=== PATIENT | female | born 1975 | race Caucasian/White ===

== ENCOUNTER 2021-09-07 18:06 | Emergency (ER) | payer MEDICAID ==
[~2021-09-07] VITALS: Ht 165.1 cm; Wt 75.0 kg
[2021-09-07] MEDS ORDERED: LIDOCAINE HCL 1% 20ML VIAL (Pyxis) INJ INFIL ONE (21:45)
[2021-09-07] MEDS ORDERED: CEFTRIAXONE SODIUM 1 G/VIAL IM ONE (21:45)
[2021-09-07] MEDS ORDERED: HYDROCODONE/ACETAMINOPHEN 5/325MG TABLET PO ONE (21:45)
[2021-09-07] MEDS ORDERED: BACITRACIN ZINC OINT UDPKT TOP ONE (22:00)
[2021-09-07] MEDS ORDERED: LIDOCAINE HCL/PF 1% 10 MG/ML 5ML VIAL INFIL ONE (22:00)
[2021-09-07] MEDS ORDERED: HYDR-4001 MT (23:15)
[2021-09-07] MEDS ORDERED: CEPH500C2 MT (23:15)
[2021-09-07] MEDS ORDERED: IBUP-2028 MT (23:15)
[2021-09-08] VITALS: BP 138/78
== END 2021-09-08 00:26 | disposition home or self-care (01) ==
LOC: ER 18:06
DX: S62.600A Fracture of unspecified phalanx of right index finger, initial encounter for closed fracture (principal); I10 Essential (primary) hypertension; X58.XXXA Exposure to other specified factors, initial encounter; Y93.89 Activity, other specified; Y92.89 Other specified places as the place of occurrence of the external cause; Y99.8 Other external cause status
CPT/HCPCS: 12001; 73130; 96372; 99283; J0696; J3490; Z7610